=== PATIENT | female | born 1935 | race Caucasian/White ===

== ENCOUNTER → 2022-03-27 | Outpatient (CLI) | payer MEDICARE, BC ==
[~2022-03-27] MED LIST: ASPIRIN E.C. 8181 MG PO; BENADRYL ALLERG25 M2 PO; CALCIUM500 M1 PO; CENTRUM SILVER1 EAC1 PO; FISH OIL500 M1 PO
== END ==
LOC: RAD 13:20
DX: R22.1 Localized swelling, mass and lump, neck (principal); R13.10 Dysphagia, unspecified
CPT/HCPCS: Q9967

== ENCOUNTER 2023-02-16 16:24 | Outpatient (RCR) | payer MEDICARE, BC | END 2023-03-18 14:20 | disposition home or self-care (01) | LOC: OT 16:24 | DX: S52.612D Displaced fracture of left ulna styloid process, subsequent encounter for closed fracture with routine healing (principal); W19.XXXD Unspecified fall, subsequent encounter ==

== ENCOUNTER 2023-05-21 12:03 | Emergency (ER) | payer MEDICARE, BC ==
[~2023-05-21] VITALS: Ht 162.6 cm; Wt 54.5 kg
[2023-05-21 12:05] VITALS: BP 142/98
[2023-05-21] MEDS ORDERED: ATORVASTATIN CA20 MG PO (12:25)
== END 2023-05-21 13:20 | disposition home or self-care (01) ==
LOC: ED 12:03
DX: S61.012A Laceration without foreign body of left thumb without damage to nail, initial encounter (principal); Z23 Encounter for immunization; W27.2XXA Contact with scissors, initial encounter
CPT/HCPCS: 90714

== ENCOUNTER 2024-07-03 15:17 | Emergency (ER) | payer MEDICARE, BC ==
[~2024-07-03] VITALS: Ht 162.6 cm; Wt 53.2 kg
[~2024-07-03 15:17] MED LIST changes: +ATORVASTATIN CA20 MG PO; +DESYREL 100MG100 MG PO
[2024-07-03 15:58] LABS: BASO # 0.02 K/mm3 (0.02-0.10); EOS # 0.09 K/mm3 (0.04-0.40); EOS % 1.8 % (1.0-5.0); HEMATOCRIT 37.2 % (37.0-47.0); HEMOGLOBIN 11.8 g/dL (12.5-16.0); LYMPH# 0.93 K/mm3 (1.50-4.00); MEAN CELL VOLUME 87 fl (78-100); MEAN CORPUSCULAR HEMOGLOBIN 28 pg (27-31); MEAN CORPUSCULAR HGB CONC 32 g/dL (33-37); MEAN PLATELET VOLUME 9.6 fl (7.4-10.4); MONO # 0.43 K/mm3 (0.20-0.80); NEU # 3.61 K/mm3 (1.40-6.50); PLATELET COUNT 226 K/mm3 (130-400); RED BLOOD COUNT 4.26 M/mm3 (4.10-5.30); RED CELL DISTRIBUTION WIDTH 14.4 % (11.5-14.5); WHITE BLOOD COUNT 5.1 K/mm3 (4.8-10.8)
[2024-07-03 16:01] LABS: ALBUMIN 4.1 g/dL (3.4-4.8)
[2024-07-03 16:02] LABS: CALCIUM 8.8 mg/dL (8.3-10.5)
[2024-07-03 16:03] LABS: TOTAL PROTEIN 6.7 g/dL (6.2-8.1)
[2024-07-03 16:05] LABS: TOTAL BILIRUBIN 0.3 mg/dL (0.2-1.2)
[2024-07-03 16:13] LABS: D-DIMER 1.15 mg/L FEU (0.15-0.50)
[2024-07-03 16:36] VITALS: BP 129/87
[2024-07-03] MEDS ORDERED: Rivaroxaban 15 MG TAB PO ONE (16:45)
== END 2024-07-03 16:45 | disposition home or self-care (01) ==
LOC: ED 15:17
PROVIDERS: Physician Assistant
DX: M79.604 Pain in right leg (principal); R79.89 Other specified abnormal findings of blood chemistry

== ENCOUNTER → 2024-07-04 | Outpatient (CLI) | payer MEDICARE, BC | LOC: RAD 14:29 | DX: M79.604 Pain in right leg (principal) ==